=== PATIENT | female | born 1970 | race Caucasian/White ===

== ENCOUNTER → 2020-10-15 | Outpatient (CLI) | payer MEDICAID ==
[~2020-10-15] MED LIST: NONE PER PT
== END | disposition home or self-care (01) ==
LOC: STAR 14:55
PROVIDERS: ATTEND Otolaryngology
DX: Z20.822 Contact with and (suspected) exposure to COVID-19 (principal); J33.8 Other polyp of sinus; J32.4 Chronic pansinusitis
CPT/HCPCS: 87635

== ENCOUNTER 2020-10-20 06:54 | Day surgery (SDC) | payer MEDICAID ==
[~2020-10-20] VITALS: Ht 167.6 cm; Wt 84.0 kg
[2020-10-20] MEDS ORDERED: FLUORESCEIN SODIUM 500 MG/5 ML ONE (07:08)
[2020-10-20] MEDS ORDERED: BACITRACIN OINT 500U/GM, 15 GM ONE (07:08)
[2020-10-20] MEDS ORDERED: EPINEPHRINE TOPICAL SOLN 1 MG/ML, 30ML ONE (07:08)
[2020-10-20] MEDS ORDERED: EPINEPHRINE 1 MG/ML, 1ML ONE (07:09)
[2020-10-20] MEDS ORDERED: LIDOCAINE/PF 1%, 30ML ONE (07:09)
[2020-10-20] MEDS ORDERED: OXYMETAZOLINE NASAL SPRAY 0.05%,30ML ONE (07:09)
[2020-10-20] MEDS ORDERED: BACITRACIN 50,000 UNIT ONE (07:09)
[2020-10-20] MEDS ORDERED: CHLORHEXIDINE 15 ML UDC MM STA (07:35)
[2020-10-20] MEDS ORDERED: LACTATED RINGERS 1,000 ML IV SCH (08:00)
[2020-10-20] MEDS ORDERED: SCOPOLAMINE 1MG PATCH TD STA (08:31)
[2020-10-20] MEDS ORDERED: FENTANYL PF 100 MCG/2ML ONE ×2 (08:32→11:25)
[2020-10-20] MEDS ORDERED: SCOPOLAMINE 1MG PATCH TD ONE (08:32)
[2020-10-20] MEDS ORDERED: SUCCINYLCHOLINE 20 MG/ML, 10ML ONE (08:35)
[2020-10-20] MEDS ORDERED: LIDOCAINE-MPF 2% ,5ML ONE (08:35)
[2020-10-20] MEDS ORDERED: PROPOFOL 10 MG/ML, 20ML ONE (08:35)
[2020-10-20] MEDS ORDERED: DEXAMETHASONE 4 MG/ML, 1ML ONE ×3 (09:03)
[2020-10-20] MEDS ORDERED: OXYcodone 5 MG/5 ML ORAL.SOL UDC PO PRN (10:00)
[2020-10-20] MEDS ORDERED: ACETAMINOPHEN 325 MG TABLET PO PRN (10:00)
[2020-10-20] MEDS ORDERED: FENTANYL PF 100 MCG/2ML IV PRN (10:00)
[2020-10-20] MEDS ORDERED: ONDANSETRON 2MG/ML, 2ML IVPush PRN (10:00)
[2020-10-20] MEDS ORDERED: KETOROLAC 30 MG/1 ML ONE (10:47)
[2020-10-20] MEDS ORDERED: OXYcodone 5 MG/5 ML ORAL.SOL UDC ONE (11:25)
== END 2020-10-20 13:35 | disposition home or self-care (01) ==
LOC: OUT 06:54
PROVIDERS: ATTEND Otolaryngology
DX: J32.4 Chronic pansinusitis (principal); J32.0 Chronic maxillary sinusitis; J33.8 Other polyp of sinus; Z79.899 Other long term (current) drug therapy; Z88.2 Allergy status to sulfonamides
CPT/HCPCS: 31253; 31259; 31267; 87070; 87075; 87077; 87186; 87205; 88304; 88311; C9122; J0171; J0330; J1100; J1885; J2704; J7120; J3010

== ENCOUNTER 2020-10-27 08:46 | Day surgery (SDC) | payer MEDICAID ==
[~2020-10-27] VITALS: Ht 167.6 cm; Wt 79.5 kg
[2020-10-27] MEDS ORDERED: OXYMETAZOLINE NASAL SPRAY 0.05%,30ML ONE (09:55)
== END 2020-10-27 11:02 | disposition home or self-care (01) ==
LOC: OUT 08:46
PROVIDERS: ATTEND Otolaryngology
DX: J32.4 Chronic pansinusitis (principal); J33.8 Other polyp of sinus; Z20.822 Contact with and (suspected) exposure to COVID-19; Z88.2 Allergy status to sulfonamides; Z98.890 Other specified postprocedural states
CPT/HCPCS: 87635

== ENCOUNTER 2021-02-11 13:54 | Emergency (ER) | payer MEDICAID ==
[~2021-02-11] VITALS: Ht 167.6 cm; Wt 84.0 kg
[2021-02-11 13:57] VITALS: BP 132/60
[2021-02-11 14:51] LABS: BASOPHILS % (AUTO) 0 % (0-1); EOSINOPHILS % (AUTO) 13 % (1-7); LYMPHOCYTES % (AUTO) 26 % (22-44); MEAN CORPUSCULAR HEMOGLOBIN 28.9 pg (27.0-34.8); MEAN CORPUSCULAR HGB CONC 33.5 g/dL (32.4-35.8); MEAN PLATELET VOLUME 8.1 fL (7.4-10.4); MONOCYTES % (AUTO) 5 % (2-9); NEUTROPHILS % (AUTO) 56 % (42-75); PLATELET COUNT 392 x10^3/uL (130-400); RED BLOOD COUNT 4.77 x10^6/uL (3.82-5.3); RED CELL DISTRIBUTION WIDTH 13.9 % (9.6-15.2)
--- NOTE | 2021-02-11 15:19 | NUR ---
pt not found to be in room. pt found near nurses station requesting to leave. pt states "I don't feel like I need a room for this". pt signed AMA paperwork.
[2021-02-11 15:23] LABS: MD SCAN
== END 2021-02-11 15:21 | disposition left against medical advice (07) ==
LOC: ED 15:15
DX: M79.661 Pain in right lower leg (principal)
CPT/HCPCS: 36415; 85025; 99284